=== PATIENT | male | born 1960 | race Caucasian/White ===

== ENCOUNTER 2019-11-21 14:30 | Outpatient (RCR) | payer OTHER ==
[~2019-11-21 14:30] MED LIST: AMBIEN 10MG10 MG PO; FLAGYL500 MG PO; I-VITE LUTEIN1 TAB PO; KEPPRA 500MG500 MG PO; LIPITOR 10MG10 MG PO; MOBIC15 MG PO; NORCO 325 MG-51 TAB PO; PERCOCET 325 MG1 TA2 PO; PROBIOTIC-MAJOR PO; SYNTHROID 0.10.15 MG PO; TRICOR145 MG PO; ZANTAC 150MG T150 MG PO; ZOFRAN ODT4 MG PO; ZYLOPRIM 100MG100 MG PO
== END 2019-12-27 13:38 | disposition home or self-care (01) ==
LOC: WSOT 14:30
DX: S66.911A Strain of unspecified muscle, fascia and tendon at wrist and hand level, right hand, initial encounter (principal); Z98.890 Other specified postprocedural states